=== PATIENT | female | born 1950 | race Caucasian/White ===

== ENCOUNTER 2024-05-01 08:59 | Inpatient (IN) ==
--- NOTE | 2024-05-01 09:05 | DR.GENAD ---
HPI Time Seen Time Seen by Provider: 05/01/24 09:03 Complaint/Symptoms Chief Complaint Doctors Comments: According to the daughter her mom's not been feeling well for the last 3 to 4 days she has been weak in the bed she does have a history of atrial fibrillation. And there was some evidence that she failed about 5 days ago. COVID-19 Coronavirus risk:travel/contact w/high risk person: No Has patient experienced Coronavirus symptoms: No PMH Travel Risk Coronavirus risk:travel/contact w/high risk person: No Has patient experienced Coronavirus symptoms: No ROS Review of Systems Constitutional: Malaise and Weakness Eyes: No Symptoms Reported ENTM: No Symptoms Reported Respiratoy: No Symptoms Reported Cardiovascular: Palpitations and Other (afib) Gastrointestinal/Abdominal: No Symptoms Reported Genitourinary: No Symptoms Reported Neurological: Problems Walking and Other (unstable gait) Musculoskeletal: Muscle Stiffness Integumentary: No Symptoms Reported Hematologic/Lymphatic: No Symptoms Reported Endocrine: No Symptoms Reported Psychiatric: Depression PE Vital Signs Vitals: Vital Signs Temperature 97.7 F Pulse Rate 108 Pulse Rate 115 Pulse Rate 116 Pulse Rate 119 Pulse Rate 123 Pulse Rate 119 Pulse Rate 124 Pulse Rate 121 Pulse Rate 122 Pulse Rate 126 Pulse Rate 120 Pulse Rate 122 Pulse Rate 122 Pulse Rate 120 Pulse Rate 121 Pulse Rate 123 Pulse Rate 126 Pulse Rate 126 Pulse Rate 126 Respiratory Rate 23 Respiratory Rate 20 Respiratory Rate 35 Respiratory Rate 20 Respiratory Rate 39 Respiratory Rate 36 Respiratory Rate 25 Respiratory Rate 36 Respiratory Rate 33 Respiratory Rate 23 Respiratory Rate 22 Respiratory Rate 29 Respiratory Rate 21 Respiratory Rate 21 Respiratory Rate 32 Respiratory Rate 26 Respiratory Rate 27 Respiratory Rate 24 Respiratory Rate 27 Respiratory Rate 28 Blood Pressure 176/69 Blood Pressure 177/69 Blood Pressure 176/136 Blood Pressure 155/72 Blood Pressure 171/79 Blood Pressure 180/77 Blood Pressure 179/73 Blood Pressure 140/68 Blood Pressure 152/77 Blood Pressure 166/135 Blood Pressure 166/135 O2 Sat by Pulse Oximetry 98 O2 Sat by Pulse Oximetry 98 O2 Sat by Pulse Oximetry 98 O2 Sat by Pulse Oximetry 98 O2 Sat by Pulse Oximetry 97 O2 Sat by Pulse Oximetry 98 O2 Sat by Pulse Oximetry 98 O2 Sat by Pulse Oximetry 99 O2 Sat by Pulse Oximetry 99 O2 Sat by Pulse Oximetry 96 O2 Sat by Pulse Oximetry 98 O2 Sat by Pulse Oximetry 93 O2 Sat by Pulse Oximetry 100 O2 Sat by Pulse Oximetry 99 O2 Sat by Pulse Oximetry 99 General General Appearance: Lethargic and In Distress (mild distress) Head Head Exam: Normal Inspection and Atraumatic Eyes Eye exam: Normal Appearance, PERRL and EOMI ENT ENT Exam: Normal Exam, Normal Oropharynx and Normal External Ear Exam External Ear Exam: Normal External Inspection TM/Canal Exam: Bilateral: Normal Nose Exam: Normal Nose Exam Mouth Exam: Normal Inspection Throat Exam: Normal Inspection Neck Neck Exam: Normal Inspection Chest Chest Inspection: Normal Inspection and Symmetric Chest Wall Rise Respiratory Respiratory Exam: Normal Lung Sounds Bilat Respiratory Exam: Bilateral: Clear to Auscultation Cardiovascular Cardiovascular Exam: Irregular Rhythm and Other (afib with rvr) Abdominal Exam Abdominal Exam: Normal Inspection, Normal Bowel Sounds and Soft Extremities Extremities Exam: Other (skin tear r posterior upper arm) Back Back Exam: Normal Inspection Neurologic Neurological Exam: Alert and Oriented X3 Psychiatric Psychiatric Exam: Depressed Skin Skin Exam: Warm, Dry and Intact MDM Differential Diagnosis Differential Diagnosis: afib with rvr,tia,uti,ami,copd,urti COURSE Treatment Treatment: Was initially given Cardizem 5 mg IV for A-fib with RVR and her rate did come down to about 120s to 130s patient was started on a cardiac exam drip a we did continue to do the workup on the patient and she ended up having a urine that was indicative of may be urosepsis she had a too numerous to count white blood cells and there and +2 bacteria she also had an increase lactic acid level of 4.2 she had a sodium was 125 potassium of 2.8 her WBC was 14.8 we did do a troponin that was 40 did a magnesium level that was 1.[address] of her brain that showed no acute intracranial process she did have an abdominal series in which there was no intrathoracic or intra-abdominal abnormality. This patient was given a bolus of saline with 20 of potassium and to be fluid over 2 hours and was given magnesium oxide 400 mg orally in the ER. Contact was made with Dr. Hsu the physician on-call and he agrees that the patient for treatment for urosepsis and for A-fib with RVR patient was placed in the unit. Patient complained of pain and was given morphine sulfate 2 mg IV and also complains of nausea and she was given Zofran 4 mg IV. ROR Labs Reviewed Laboratory Results Reviewed?: Yes 05/01/24 09:10 05/01/24 09:10 Laboratory: WBC 14.8 X10^3/uL (3.6-10.0) H 05/01/24 09:10 RBC 4.47 X10^6/uL (3.5-5.4) 05/01/24 09:10 Hgb 12.9 g/dL (12.0-16.0) 05/01/24 09:10 Hct 38.6 % (36.0-47.0) 05/01/24 09:10 MCV 86.3 fL (80.0-100.0) 05/01/24 09:10 MCH 28.9 pg (27.0-34.0) 05/01/24 09:10 MCHC 33.5 g/dL (33.0-35.0) 05/01/24 09:10 RDW 19.0 % (11.6-16.5) H 05/01/24 09:10 Plt Count 176 X10^3/uL (150.0-450.0) 05/01/24 09:10 Plt Count Comment Adequate (ADEQUATE) 05/01/24 09:10 MPV 9.1 fL (7.4-11.0) 05/01/24 09:10 Neut % (Auto) 79.3 % (42.0-75.0) H 05/01/24 09:10 Lymph % (Auto) 10.6 % (21.0-51.0) L 05/01/24 09:10 [place] % (Auto) 9.6 % (0.0-13.0) 05/01/24 09:10 Eos % (Auto) 0.1 % (0.9-2.9) L 05/01/24 09:10 Baso % (Auto) 0.4 % (0.2-1.0) 05/01/24 09:10 Neut # (Auto) 11.7 x10^3/uL (2.2-4.8) H 05/01/24 09:10 Lymph # (Auto) 1.6 X10^3/uL (1.3-2.9) 05/01/24 09:10 [place] # (Auto) 1.4 x10^3/uL (0.3-0.8) H 05/01/24 09:10 Eos # (Auto) 0.0 x10^3/uL (0.0-0.2) 05/01/24 09:10 Baso # (Auto) 0.1 X10^3/uL (0.0-0.1) 05/01/24 09:10 Absolute Nucleated RBC 0.1 /100WBC 05/01/24 09:10 Total Counted 100 05/01/24 09:10 Neutrophils % (Manual) 78 % (39-76) H 05/01/24 09:10 Band Neutrophils % 2 % (0-10) 05/01/24 09:10 Lymphocytes % (Manual) 15 % (13-43) 05/01/24 09:10 Monocytes % (Manual) 5 % (4-9) 05/01/24 09:10 Giant Platelets Rare 05/01/24 09:10 Plt Morphology Comment Abnormal (NORMAL) A 05/01/24 09:10 RBC Morphology Abnormal (NORMAL) A 05/01/24 09:10 Anisocytosis Slight A 05/01/24 09:10 PT 17.0 SECONDS (11.8-14.3) 05/01/24 09:10 INR Target Range - 05/01/24 09:10 INR 1.43 (0.8-1.3) H 05/01/24 09:10 APTT 30.0 SECONDS (22.9-36.5) 05/01/24 09:10 PTT Comment - 05/01/24 09:10 Sodium 125 mmol/L (136-145) L* 05/01/24 09:10 Corrected Sodium 127 mmol/L (136-145) L 05/01/24 09:10 Potassium 2.8 mmol/L (3.5-5.1) L* 05/01/24 09:10 Chloride 89 mmol/L (98-107) L 05/01/24 09:10 Carbon Dioxide 24.0 mmol/L (21-32) 05/01/24 09:10 BUN 17 mg/dL (7-18) 05/01/24 09:10 Creatinine 1.69 mg/dL (0.55-1.02) H 05/01/24 09:10 Est GFR (MDRD) Af Amer 38 (>60) L 05/01/24 09:10 Est GFR (MDRD) Non-Af 32 (>60) L 05/01/24 09:10 Glucose 192 mg/dL (65-99) H 05/01/24 09:10 Lactic Acid 4.6 mmol/L (0.4-2.0) H* 05/01/24 09:10 Calcium 8.6 mg/dL (8.5-10.1) 05/01/24 09:10 Corrected Calcium 9.7 mg/dL (8.5-10.1) 05/01/24 09:10 Magnesium 1.8 mg/dL (2.0-2.9) L 05/01/24 09:10 Total Bilirubin 1.10 mg/dL (0.2-1.0) H 05/01/24 09:10 AST 38 Units/L (15-37) H 05/01/24 09:10 ALT 29 Units/L (12-78) 05/01/24 09:10 Alkaline Phosphatase 140 Units/L (46-116) H 05/01/24 09:10 Ammonia 18 umol/L (11-32) 05/01/24 09:45 Creatine Kinase 30 Units/L (26-192) 05/01/24 09:10 Troponin I High Sens 40.0 ng/L (4.0-60.0) 05/01/24 09:10 Total Protein 7.5 g/dL (6.4-8.2) 05/01/24 09:10 Albumin 2.6 g/dL (3.4-5.0) L 05/01/24 09:10 Globulin 4.9 g/dL (2.5-4.5) H 05/01/24 09:10 Albumin/Globulin Ratio 0.5 Ratio (1.1-2.1) L 05/01/24 09:10 Amylase 50 Units/L (25-115) 05/01/24 09:10 Lipase 60 Units/L (16-77) 05/01/24 09:10 Specimen Type Catherized urine 05/01/24:22 Urine Color Yellow (YELLOW) 05/01/24 09:22 Urine Appearance Turbid (CLEAR) 05/01/24 09:22 Urine pH 6.0 (5.0 - 8.0) 05/01/24 09:22 Ur Specific [place] 1.020 (1.000-1.030) 05/01/24 09:22 Urine Protein 4+ (NEGATIVE) 05/01/24 09:22 Urine Glucose (UA) Negative (NEGATIVE) 05/01/24 09: Urine Ketones Negative (NEGATIVE) 05/01/24 09: Urine Blood 5+ (NEGATIVE) 05/01/24 09:22 Urine Nitrite Negative (NEGATIVE) 05/01/24 09:22 Urine Bilirubin Negative (NEGATIVE) 05/01/24 09: Urine Urobilinogen Normal (NORMAL) 05/01/24 09:22 Ur Leukocyte Esterase 3+ (NEGATIVE) 05/01/24 09:22 Urine RBC Tntc /HPF (0-3) A 05/01/24 09:22 Urine WBC Tntc /HPF (0-5) A 05/01/24 09:22 Ur Squamous Epith Cells Rare /HPF (NEGATIVE) 05/01/24 09: Amorphous Sediment 1+ /HPF (NEGATIVE) 05/01/24 09: Urine Bacteria 2+ /HPF (NEGATIVE) 05/01/24 09:22 Ur Culture Indicated? Yes/culture set up 05/01/24 09: SARS-CoV-2 (PCR) Negative (NEGATIVE) 05/01/24 09:22 Influenza Type A (PCR) Negative (NEGATIVE) 05/01/24 09: Influenza Type B (PCR) Negative (NEGATIVE) 05/01/24 09: RSV (PCR) Negative (NEGATIVE) 05/01/24 09:22 Opioid Opioid Risk Tool Age (Attila box if 16-45): No History of Preadolescent Sexual Abuse: No Total: 0 Total Score Risk Category: Low Risk Copyright: Tello DORSEY predicting aberrant behaviors Discharge Plan Diagnosis Discharge Problem: Sepsis, Atrial fibrillation with rapid ventricular response, Hypokalemia, Dehydration, Hyponatremia, Hypomagnesemia Discharge Plan Patient Disposition: 09 ADMITTED INPATIENT Condition: Stable Prescriptions: No Action venlafaxine 75 mg capsule,extended release 24hr 225 mg PO QDAY albuterol sulfate 2.5 mg /3 mL (0.083 %) solution for nebulization 2.5 mg inhalation Q6HR clopidogrel 75 mg tablet 75 mg PO QDAY amlodipine 5 mg tablet 5 mg PO QDAY nitroglycerin 0.4 mg tablet, sublingual 0.4 mg sublingual Q5-15M PRN diltiazem HCl 120 mg capsule,extended release 24hr 120 mg PO QDAY folic acid 1 mg tablet 1 mg PO QDAY oxycodone 5 mg tablet 5 mg PO QID ezetimibe 10 mg tablet 10 mg PO QDAY Prolia 60 mg/mL syringe 60 mg SUBCUT Q6M Linzess 290 mcg capsule 290 mcg PO QAM aspirin 81 mg Capsule 81 mg PO QDAY Health Concerns: Post Hospitalization: new medications and changes needed to prevent readmission or further decline. Pt educated and given instructions on all concerns. Plan of Treatment: Continue with present treatment and follow up plan. Pt is to keep follow up a ppointment as instructed and take medications as ordered. Orders to Discharge Patient Discharge Orders: Transfer (Routine); Ordered 05/01/24 Ordered By: Jb Goldstein Follow ups/Referrals Follow ups/Referrals: FRANKY MARTINEZ [Primary Care Provider] - 3 days
--- NOTE | 2024-05-01 09:14 | EKG ---
Test Reason : afib Blood Pressure : */* mmHG Vent. Rate : 129 BPM Atrial Rate : * BPM P-R Int : * ms QRS Dur : 72 ms QT Int : 340 ms P-R-T Axes : * -47 59 degrees QTc Int : 498 ms Atrial fibrillation with rapid ventricular response with premature ventricular or aberrantly conducte d complexes Left axis deviation Anteroseptal infarct , age undetermined Abnormal ECG No previous ECGs available Confirmed by Mandeep Gilbert MD ([id number]) on 05/04/2024 7:38:44 AM Referred By: Confirmed By: Mandeep Gilbert MD
[2024-05-01] MEDS: CARDIZEM INJ 50 MG VIAL IVP ONE (09:17)
[2024-05-01 09:30] LABS: BASOPHILS # (AUTO) 0.1 X10^3/uL (0.0-0.1); BASOPHILS % (AUTO) 0.4 % (0.2-1.0); EOSINOPHILS % (AUTO) 0.1 % (0.9-2.9); HEMOGLOBIN 12.9 g/dL (12.0-16.0); MEAN CORPUSCULAR HGB CONC 33.5 g/dL (33.0-35.0); MONOCYTES # (AUTO) 1.4 x10^3/uL (0.3-0.8); NEUTROPHILS # (AUTO) 11.7 x10^3/uL (2.2-4.8); RED BLOOD COUNT 4.47 X10^6/uL (3.5-5.4)
[2024-05-01 09:34] LABS: HEMATOCRIT 38.6 % (36.0-47.0); LYMPHOCYTES # (AUTO) 1.6 X10^3/uL (1.3-2.9); LYMPHOCYTES % (AUTO) 10.6 % (21.0-51.0); MEAN CORPUSCULAR HEMOGLOBIN 28.9 pg (27.0-34.0); MEAN CORPUSCULAR VOLUME 86.3 fL (80.0-100.0); MEAN PLATELET VOLUME 9.1 fL (7.4-11.0); MONOCYTES % (AUTO) 9.6 % (0.0-13.0); NEUTROPHILS % (AUTO) 79.3 % (42.0-75.0); PLATELET COUNT 176 X10^3/uL (150.0-450.0); WHITE BLOOD COUNT 14.8 X10^3/uL (3.6-10.0)
[2024-05-01 09:39] LABS: INR 1.43 (0.8-1.3)
[2024-05-01] MEDS: ZOFRAN INJ 4 MG VIAL IVP ONE (09:44)
[2024-05-01 09:47] LABS: ALBUMIN 2.6 g/dL (3.4-5.0); BAND NEUTROPHILS % 2 % (0-10); CALCIUM 8.6 mg/dL (8.5-10.1); COR CA(FOR HYPOALB) 9.7 mg/dL (8.5-10.1); CREATININE 1.69 mg/dL (0.55-1.02); MAGNESIUM 1.8 mg/dL (2.0-2.9); TOTAL PROTEIN 7.5 g/dL (6.4-8.2)
[2024-05-01 09:48] LABS: ANISOCYTOSIS SLIGHT
[2024-05-01 09:51] LABS: GIANT PLATELET RARE; PLATELET MORPHOLOGY COMMENT ABNORMAL (NORMAL)
[2024-05-01 09:56] LABS: POTASSIUM 2.8 mmol/L (3.5-5.1)
[2024-05-01 10:04] LABS: BILIRUBIN,URINE NEGATIVE (NEGATIVE); BLOOD/HEMOGLOBIN,URINE 5+ (NEGATIVE); GLUCOSE, URINE NEGATIVE (NEGATIVE); KETONES,URINE NEGATIVE (NEGATIVE); LEUKOCYTE ESTERASE ,URINE 3+ (NEGATIVE); NITRITES,URINE NEGATIVE (NEGATIVE); PROTEIN,URINE 4+ (NEGATIVE); UROBILINOGEN,URINE NORMAL (NORMAL)
[2024-05-01] MEDS: NS + KCL 20 MEQ/L 1,000 ML IV ONE (10:09)
[2024-05-01 10:13] LABS: APPEARANCE,URINE TURBID (CLEAR); BACTERIA,URINE 2+ /HPF (NEGATIVE); COLOR,URINE YELLOW (YELLOW); RBC,URINE TNTC /HPF (0-3); SQUAMOUS EPITHELIAL CELL,UR RARE /HPF (NEGATIVE)
--- NOTE | 2024-05-01 10:20 | CT ---
EXAMINATION:HEAD (TRAUMA)HISTORY:Pt's daughter states that 3 days ago the pt did fall twice and she is unsure if she hit her head. Pt has also had urinary incontinence and burning with urination; .COMPARISON STUDY:None.TECHNIQUE:Images were obtained in brain and bone windows. The above CT scan was done with automated exposure control and the mA and kV was adjusted to obtain quality images according to patient size.FINDINGS:There is no acute intracranial hemorrhage, midline shift or edema present. There is atrophy and deep white matter ischemic change due to small vessel disease. [place]-white matter differentiation is maintained throughout. There are no intra-axial or extra-axial collections noted. There is motion artifact. Old lacunar infarct in the left basal ganglia..The sinuses are clear. The mastoid air cells are clear. There is no radiographic evidence of depressed skull fracture. Vascular calcification about the skull base..IMPRESSION:No acute intracranial process. Atrophy and deep white matter ischemic change due to small vessel disease. .THIS IS AN ELECTRONICALLY VERIFIED FINAL [id number]/01/2024 10:16 AM - Electronically signed by Dante Encarnacion MD
[2024-05-01] MEDS: CARDIZEM INJ 125 MG VIAL 125 MG in NS 100 ML IV 100 ML IV PRN (10:31)
[2024-05-01] MEDS: ROCEPHIN VIAL 1 GRAM IVP ONE (10:55)
--- NOTE | 2024-05-01 11:09 | RAD ---
EXAM: ACUTE ABDOMEN SERI ES HISTORY: Pt's daughter states that 3 days ago the pt did fall twice and she is unsure if she hit her head. Pt has also had urinary incontinence and burning with urination; COMPARISON: None FINDINGS: The cardiomediastinal silhouette is normal in size. Loop recorder overlying the left chest. No acut e airspace disease. No pneumothorax or effusion.No acute osseous abnormality in the thorax. Evaluation of the abdomen demonstrates a nonobstructive bowel gas pattern. no evidence of pneumoperit oneum. No pathologic soft tissue calcification. No acute osseous abnormality in the abdomen. ORIF chan rdware overlying the left femur. IMPRESSION: 1. No acute cardiopulmonary process. 2. No acute abdominal process. THIS IS AN ELECTRONICALLY VERIFIED FINAL REPORT 05/01/2024 11:06 AM - Electronically signed by Ross Carpenter MD
[2024-05-01] MEDS: MAG-OX TAB PO ONE (11:26)
[2024-05-01] MEDS: MORPHINE SULFATE INJ 2 MG INJ IVP ONE (11:29)
[2024-05-01] MEDS ORDERED: ZOFRAN INJ 4 MG VIAL IVP PRN (11:45)
[2024-05-01] MEDS ORDERED: MORPHINE SULFATE INJ 10 MG IVP PRN (11:45)
[2024-05-01] MEDS ORDERED: NITROSTAT SL PRN (12:48)
[2024-05-01] MEDS: ZOFRAN INJ 4 MG VIAL ONE (12:49)
[2024-05-01] MEDS: CARDIZEM INJ 50 MG VIAL ONE (12:49)
[2024-05-01] MEDS: NS 100 ML IV 100 ML ONE (12:49)
[2024-05-01] MEDS: MORPHINE SULFATE INJ 2 MG INJ ONE (12:49)
[2024-05-01] MEDS: MAG-OX TAB ONE (12:50)
[2024-05-01] MEDS: CARDIZEM INJ 125 MG VIAL ONE (12:50)
[2024-05-01] MEDS: ROCEPHIN VIAL 1 GRAM ONE (12:50)
[2024-05-01] MEDS: PROLIA SC SCH (12:53)
[2024-05-01] MEDS ORDERED: PROVENTIL NEB TX 0.083% 2.5MG/ 3ML IN SCH (15:00)
[2024-05-01] MEDS: NS + KCL 20 MEQ/L 1,000 ML IV SCH (17:10)
[2024-05-01] MEDS: PROVENTIL NEB TX 0.083% 2.5MG/ 3ML NEB SCH (17:49)
[2024-05-01] MEDS ORDERED: ACCUNEB 1.25 MG NEBULE NEB SCH (18:00)
[2024-05-01] MEDS: MORPHINE SULFATE INJ 2 MG INJ IVP PRN (18:34)
[2024-05-01] MEDS: LASIX PO SCH (21:38)
[2024-05-01] MEDS: ROCEPHIN VIAL 1 GRAM 1 G in NS 100 ML IV 100 ML IV SCH (21:40)
[2024-05-01] MEDS: NEXTERONE IV 150 MG PREMIX* 150 MG/100 ML BAG IV ONE (22:16)
[2024-05-01] MEDS: NEXTERONE IV 360 MG PREMIX* 360 MG/200 ML BAG IV PRN (22:41)
[2024-05-01] MEDS: NEXTERONE IV 360 MG PREMIX* 360 MG/200 ML BAG IV ONE (22:41)
[2024-05-02] MEDS: NS + KCL 20 MEQ/L 1,000 ML IV SCH (01:21)
[2024-05-02] MEDS: NEXTERONE IV 360 MG PREMIX* 360 MG/200 ML BAG IV ONE (04:28)
[2024-05-02 05:00] LABS: ALBUMIN 2.2 g/dL (3.4-5.0); CARBON DIOXIDE 24.9 mmol/L (21-32); COR CA(FOR HYPOALB) 8.4 mg/dL (8.5-10.1); CREATININE 1.27 mg/dL (0.55-1.02); MAGNESIUM 1.3 mg/dL (2.0-2.9); TOTAL PROTEIN 6.6 g/dL (6.4-8.2)
[2024-05-02 05:03] LABS: BASOPHILS # (AUTO) 0.1 X10^3/uL (0.0-0.1); BASOPHILS % (AUTO) 0.5 % (0.2-1.0); EOSINOPHILS % (AUTO) 0.1 % (0.9-2.9); HEMATOCRIT 32.3 % (36.0-47.0); HEMOGLOBIN 11.1 g/dL (12.0-16.0); LYMPHOCYTES # (AUTO) 1.3 X10^3/uL (1.3-2.9); LYMPHOCYTES % (AUTO) 10.8 % (21.0-51.0); MEAN CORPUSCULAR HEMOGLOBIN 29.2 pg (27.0-34.0); MEAN CORPUSCULAR HGB CONC 34.3 g/dL (33.0-35.0); MONOCYTES % (AUTO) 8.5 % (0.0-13.0); NEUTROPHILS # (AUTO) 9.5 x10^3/uL (2.2-4.8); NEUTROPHILS % (AUTO) 80.1 % (42.0-75.0); PLATELET COUNT 153 X10^3/uL (150.0-450.0); RED CELL DISTRIBUTION WIDTH 19.5 % (11.6-16.5); WHITE BLOOD COUNT 11.9 X10^3/uL (3.6-10.0)
[2024-05-02 05:24] LABS: POTASSIUM 2.5 mmol/L (3.5-5.1)
[2024-05-02 06:59] LABS: ANISOCYTOSIS SLIGHT; BURR CELLS PRESENT; PLATELET MORPHOLOGY COMMENT NORMAL (NORMAL)
[2024-05-02] MEDS ORDERED: CARDIZEM CD 120 MG 24-HR PO SCH (09:00)
[2024-05-02] MEDS: NORVASC TAB 5 MG PO SCH (09:10)
[2024-05-02] MEDS: FOLIC ACID TAB 1 MG PO SCH (09:10)
[2024-05-02] MEDS: MAG-OX TAB PO SCH ×2 (09:10→17:51)
[2024-05-02] MEDS: EFFEXOR XR 75 MG CAP 24-HR PO SCH (09:10)
[2024-05-02] MEDS: PLAVIX PO SCH (09:10)
[2024-05-02] MEDS: ASPIRIN EC 81 MG PO SCH (09:11)
[2024-05-02] MEDS: ZETIA TAB 10 MG PO SCH (09:11)
[2024-05-02] MEDS: LINZESS PO SCH (09:11)
[2024-05-02] MEDS ORDERED: APRESOLINE INJ 20 MG VIAL ONE (12:11)
[2024-05-02] MEDS: APRESOLINE INJ 20 MG VIAL IVP PRN (12:15)
[2024-05-02] MEDS: LOPRESSOR INJ 5 MG AMP IVP PRN (16:10)
[2024-05-02] MEDS: K-DUR TAB 20 MEQ PO SCH (17:51)
[2024-05-02] MEDS: CONSULT PHARMACY - POTASSIUM & MAGNESIUM XX SCH (18:46)
[2024-05-02] MEDS: VISTARIL PO PRN (20:11)
--- NOTE | 2024-05-02 20:11 | DR.H&P ---
H&P History & Physical for Day of: H&P Date: 05/02/24 Chief Complaint Chief Complaint: weakness History of Present Illness History of Present Illness: Patient brought to ER from home due to low worsening weakness with some alteration of mentation. Found to be septic from a UTI along with having RVR from A-fib. Feeling much better this morning. Seems to be back at baseline. HR much better but having elevated BP. Culture still pending on UA. Currently on Cardizem and amiodarone drips. ROS: 12 point ROS negative septa as noted in HPI. Vitals, labs, and imaging reviewed. PE: Well-developed, well-nourished elderly female in no acute distress. Head NCAT. Hearing intact conversation. EOMI. Heart irregularly irregular. Lungs clear. Belly soft and nontender with bowel sounds present. Mood and affect ap propriate. Past Medical History Past Medical History: Anemia, CHF, COPD, Coronary Artery Disease, CVA, Diabetes, Dyslipidemia, Hypertension, [place] and SVT Past Surgical History Surgical History: Angioplasty/Stents, Appendectomy, CABG/Valve Surgery, Cholecystectomy, MENTAL TESTER Surgery, Hysterectomy, Ortho Surgery and Other Family History Family Medical History: Diabetes Mellitus, Cancer, [place], Coronary Artery Disease, Heart Failure, Sudden Cardiac and Hypertension Social History Does patient currently use any type of tobacco product: No Have you used tobacco products in the last 12 months: No Type of Tobacco Use: Cigarettes How many years tobacco product used: 60 Does any household member use tobacco: No Alcohol Use: None Drug Use: None Medications Home Medications: Home Medications Medication Instructions Recorded Confirmed Type albuterol sulfate 2.5 mg/3 mL 2.5 mg inhalation Q6HR 05/01/24 05/01/24 History (0.083 %) solution for nebulization amlodipine 5 mg tablet 5 mg PO QDAY 05/01/24 05/01/24 History aspirin 81 mg capsule 81 mg PO QDAY 05/01/24 05/01/24 History clopidogrel 75 mg tablet 75 mg PO QDAY 05/01/24 05/01/24 History denosumab 60 mg/mL subcutaneous 60 mg subcut [id number] osteoporosis 05/01/24 05/01/24 History syringe (Prolia) diltiazem HCl 120 mg 120 mg PO QDAY 05/01/24 05/01/24 History capsule,extended release 24 hr ezetimibe 10 mg tablet 10 mg PO QDAY 05/01/24 05/01/24 History folic acid 1 mg tablet 1 mg PO QDAY 05/01/24 05/01/24 History linaclotide 290 mcg capsule 290 mcg PO QAM 05/01/24 05/01/24 History (Linzess) nitroglycerin 0.4 mg sublingual 0.4 mg sublingual Q5-15M PRN 05/01/24 05/01/24 History tablet oxycodone 5 mg tablet 5 mg PO QID pain 05/01/24 05/01/24 History venlafaxine 75 mg capsule,extended 225 mg PO QDAY 05/01/24 05/01/24 History release 24 hr Allergies Allergies Allergy/AdvReac Type Severity Reaction Status Date / Time No Known Allergies Allergy Verified 05/01/24 09:17 Labs 05/02/24 04:03 05/02/24 04:03 Labs: 05/01/24 09:22 Urine,Catheterized Urine Culture - Preliminary 05/01/24 09:10 Blood Blood Culture - Preliminary Laboratory WBC 11.9 X10^3/uL (3.6-10.0) H 05/02/24 04:03 RBC 3.80 X10^6/uL (3.5-5.4) 05/02/24 04:03 Hgb 11.1 g/dL (12.0-16.0) L 05/02/24 04:03 Hct 32.3 % (36.0-47.0) L 05/02/24 04:03 MCV 85.0 fL (80.0-100.0) 05/02/24 04:03 MCH 29.2 pg (27.0-34.0) 05/02/24 04:03 MCHC 34.3 g/dL (33.0-35.0) 05/02/24 04:03 RDW 19.5 % (11.6-16.5) H 05/02/24 04:03 Plt Count 153 X10^3/uL (150.0-450.0) 05/02/24 04:03 Plt Count Comment Adequate (ADEQUATE) 05/02/24 04:03 MPV 9.0 fL (7.4-11.0) 05/02/24 04:03 Neut % (Auto) 80.1 % (42.0-75.0) H 05/02/24 04:03 Lymph % (Auto) 10.8 % (21.0-51.0) L 05/02/24 04:03 [place] % (Auto) 8.5 % (0.0-13.0) 05/02/24 04:03 Eos % (Auto) 0.1 % (0.9-2.9) L 05/02/24 04:03 Baso % (Auto) 0.5 % (0.2-1.0) 05/02/24 04:03 Neut # (Auto) 9.5 x10^3/uL (2.2-4.8) H 05/02/24 04:03 Lymph # (Auto) 1.3 X10^3/uL (1.3-2.9) 05/02/24 04:03 [place] # (Auto) 1.0 x10^3/uL (0.3-0.8) H 05/02/24 04:03 Eos # (Auto) 0.0 x10^3/uL (0.0-0.2) 05/02/24 04:03 Baso # (Auto) 0.1 X10^3/uL (0.0-0.1) 05/02/24 04:03 Absolute Nucleated RBC 0.1 /100WBC 05/02/24 04:03 Total Counted 100 05/02/24 04:03 Neutrophils % (Manual) 84 % (39-76) H 05/02/24 04:03 Band Neutrophils % 2 % (0-10) 05/01/24 09:10 Lymphocytes % (Manual) 10 % (13-43) L 05/02/24 04:03 Monocytes % (Manual) 6 % (4-9) 05/02/24 04:03 Giant Platelets Rare 05/01/24 09:10 Plt Morphology Comment Normal (NORMAL) 05/02/24 04:03 RBC Morphology Abnormal (NORMAL) A 05/02/24 04:03 Anisocytosis Slight A 05/02/24 04:03 Og Cells Present 05/02/24 04:03 PT 17.0 SECONDS (11.8-14.3) 05/01/24 09:10 INR Target Range - 05/01/24 09:10 INR 1.43 (0.8-1.3) H 05/01/24 09:10 APTT 30.0 SECONDS (22.9-36.5) 05/01/24 09:10 PTT Comment - 05/01/24 09:10 Sodium 128 mmol/L (136-145) L 05/02/24 04:03 Corrected Sodium 129 mmol/L (136-145) L 05/02/24 04:03 Potassium 2.5 mmol/L (3.5-5.1) L* 05/02/24 04:03 Chloride 93 mmol/L (98-107) L 05/02/24 04:03 Carbon Dioxide 24.9 mmol/L (21-32) 05/02/24 04:03 BUN 15 mg/dL (7-18) 05/02/24 04:03 Creatinine 1.27 mg/dL (0.55-1.02) H 05/02/24 04:03 Est GFR (MDRD) Af Amer 53 (>60) L 05/02/24 04:03 Est GFR (MDRD) Non-Af 44 (>60) L 05/02/24 04:03 Glucose 127 mg/dL (65-99) H 05/02/24 04:03 Lactic Acid 1.7 mmol/L (0.4-2.0) 05/01/24 11:24 Calcium 7.0 mg/dL (8.5-10.1) L 05/02/24 04:03 Corrected Calcium 8.4 mg/dL (8.5-10.1) L 05/02/24 04:03 Magnesium 1.3 mg/dL (2.0-2.9) L 05/02/24 04:03 Total Bilirubin 0.50 mg/dL (0.2-1.0) 05/02/24 04:03 AST 22 Units/L (15-37) 05/02/24 04:03 ALT 19 Units/L (12-78) 05/02/24 04:03 Alkaline Phosphatase 122 Units/L (46-116) H 05/02/24 04:03 Ammonia 18 umol/L (11-32) 05/01/24 09:45 Creatine Kinase 30 Units/L (26-192) 05/01/24 09:10 Troponin I High Sens 40.0 ng/L (4.0-60.0) 05/01/24 09:10 Total Protein 6.6 g/dL (6.4-8.2) 05/02/24 04:03 Albumin 2.2 g/dL (3.4-5.0) L 05/02/24 04:03 Globulin 4.4 g/dL (2.5-4.5) 05/02/24 04:03 Albumin/Globulin Ratio 0.5 Ratio (1.1-2.1) L 05/02/24 04:03 Triglycerides 107 mg/dL (0-150) 05/02/24 04:03 Cholesterol 72 mg/dL (0-200) 05/02/24 04:03 LDL Cholesterol, Calc 39 mg/dL (0-100) 05/02/24 04:03 HDL Cholesterol 12 mg/dL (40-60) L 05/02/24 04:03 Cholesterol/HDL Ratio 6.0 (0.0-5.0) H 05/02/24 04:03 Amylase 50 Units/L (25-115) 05/01/24 09:10 Lipase 60 Units/L (16-77) 05/01/24 09:10 Specimen Type Catherized urine 05/01/24 09:22 Urine Color Yellow (YELLOW) 05/01/24 09: Urine Appearance Turbid (CLEAR) 05/01/24 09:22 Urine pH 6.0 (5.0 - 8.0) 05/01/24 09:22 Ur Specific [place] 1.020 (1.000-1.030) 05/01/24 09:22 Urine Protein 4+ (NEGATIVE) 05/01/24 09: Urine Glucose (UA) Negative (NEGATIVE) 05/01/24 09: Urine Ketones Negative (NEGATIVE) 05/01/24 09: Urine Blood 5+ (NEGATIVE) 05/01/24 09: Urine Nitrite Negative (NEGATIVE) 05/01/24 09: Urine Bilirubin Negative (NEGATIVE) 05/01/24 09: Urine Urobilinogen Normal (NORMAL) 05/01/24 09:22 Ur Leukocyte Esterase 3+ (NEGATIVE) 05/01/24 09:22 Urine RBC Tntc /HPF (0-3) A 05/01/24 09:22 Urine WBC Tntc /HPF (0-5) A 05/01/24 09:22 Ur Squamous Epith Cells Rare /HPF (NEGATIVE) 05/01/24 09:22 Amorphous Sediment 1+ /HPF (NEGATIVE) 05/01/24 09:22 Urine Bacteria 2+ /HPF (NEGATIVE) 05/01/24 09:22 Ur Culture Indicated? Yes/culture set up 05/01/24 09:22 SARS-CoV-2 (PCR) Negative (NEGATIVE) 05/01/24 09:22 Influenza Type A (PCR) Negative (NEGATIVE) 05/01/24 09:22 Influenza Type B (PCR) Negative (NEGATIVE) 05/01/24 09:22 RSV (PCR) Negative (NEGATIVE) 05/01/24 09:22 Physical Exam Vital Signs: Vital Signs Pulse Rate 96 Pulse Rate 93 Respiratory Rate 23 Respiratory Rate 26 Respiratory Rate 25 Blood Pressure 177/74 Blood Pressure 167/72 O2 Sat by Pulse Oximetry 99 O2 Sat by Pulse Oximetry 99 Assessment/Plan (1) Severe sepsis: Narrative Support Text: Blood pressure on the high side not low, will stop aggressive IV fluids and switch to p.o. on. Partially doing this because of the nationwide backorder. Continue IV Rocephin for now while pending cultures. Patient is improving. Did have SIRS, UTI, and RVR with MICHELLE. Status: Acute (2) Urinary tract infection: Qualifiers: Urinary tract infection type: acute cystitis Hematuria presence: with hematuria Qualified Code(s): N30.01 - Acute cystitis with hematuria Narrative Support Text: Pending culture. Continue Rocephin. Status: Acute (3) Atrial fibrillation with rapid ventricular response: Narrative Support Text: Wean off amiodarone now and Cardizem later today. Resume home meds. Monitor closely. Should resolve with improving sepsis. Status: Acute (4) Acute kidney injury: Narrative Support Text: Continue p.o. hydration at this time. IV fluids to KVO. Status: Acute (5) Hypomagnesemia: Narrative Support Text: Replete per protocol Status: Acute (6) Hyponatremia: Narrative Support Text: Per protocol Status: Acute (7) Hypokalemia: Narrative Support Text: Per protocol Status: Acute
[2024-05-03 06:08] LABS: BASOPHILS % (AUTO) 0.3 % (0.2-1.0); EOSINOPHILS % (AUTO) 0.2 % (0.9-2.9); HEMATOCRIT 32.8 % (36.0-47.0); HEMOGLOBIN 11.1 g/dL (12.0-16.0); LYMPHOCYTES # (AUTO) 1.2 X10^3/uL (1.3-2.9); LYMPHOCYTES % (AUTO) 10.2 % (21.0-51.0); MEAN CORPUSCULAR HEMOGLOBIN 28.8 pg (27.0-34.0); MEAN CORPUSCULAR HGB CONC 33.9 g/dL (33.0-35.0); MEAN CORPUSCULAR VOLUME 85.1 fL (80.0-100.0); MEAN PLATELET VOLUME 9.1 fL (7.4-11.0); MONOCYTES # (AUTO) 0.8 x10^3/uL (0.3-0.8); MONOCYTES % (AUTO) 7.3 % (0.0-13.0); NEUTROPHILS # (AUTO) 9.3 x10^3/uL (2.2-4.8); PLATELET COUNT 186 X10^3/uL (150.0-450.0); RED BLOOD COUNT 3.85 X10^6/uL (3.5-5.4); RED CELL DISTRIBUTION WIDTH 19.4 % (11.6-16.5); WHITE BLOOD COUNT 11.4 X10^3/uL (3.6-10.0)
[2024-05-03] MEDS: NS + KCL 20 MEQ/L 1,000 ML IV SCH (06:08)
[2024-05-03 06:21] LABS: CALCIUM 7.1 mg/dL (8.5-10.1); CARBON DIOXIDE 25.8 mmol/L (21-32); COR CA(FOR HYPOALB) 8.7 mg/dL (8.5-10.1); CREATININE 1.17 mg/dL (0.55-1.02); MAGNESIUM 1.7 mg/dL (2.0-2.9); POTASSIUM 3.1 mmol/L (3.5-5.1); TOTAL PROTEIN 6.6 g/dL (6.4-8.2)
[2024-05-03] MEDS: CARDIZEM CD 120 MG 24-HR PO SCH (13:19)
--- NOTE | 2024-05-03 14:19 | NOTE.SOAP ---
Soap Note Note for Day of Date of Exam: 05/03/24 Subjective Data Subjective Data: Patient seen with daughter and nurse at bedside. Doing much better. E. coli with trinh sensitivity grew from culture. She is now off amiodarone and Cardizem drips. BP still elevated. Objective Data Objective Data: Elderly female in no acute distress. Hearing intact conversation. Head NCAT. EOMI. Heart irregularly, irregular. Lungs are clear bilaterally. Belly is soft, nontender, nondistended with bowel sounds present. Mood and affect appropriate. Assessment Assessment: 1. Severe sepsis due to E. coli UTI 2. MICHELLE secondary to sepsis from E. coli UTI. 3. A-fib with RVR secondary to severe sepsis. Plan Plan: Continue IV Rocephin for now. Sepsis is resolving. MICHELLE is also resolving. Continue p.o. and IV fluids. Resume p.o. Cardizem for rate control. Continue DOAC
[2024-05-03] MEDS: ATIVAN TAB 0.5 MG PO PRN (15:19)
[2024-05-03 15:48] VITALS: BMI 25.4
[2024-05-03 18:32] LABS: ABG ALLEN TEST POS; ABG BASE EXCESS -1.1 mmol/L (-2.0-2.0); ABG HCO3 22.4 mmol/L (22-26)
--- NOTE | 2024-05-03 20:35 | CT ---
PROCEDURE: CTA Chest.HISTORY: TACHYPNEA, SHORTNESS OF BREATH, CRITICAL ABG VALUE; .TECHNIQUE: Axial images were performed through the chest with the administration of IV contrast with multiplanar reformations . 3D and MIPS reconstructions were performed and reviewed. Dose reduction techniques including Automated Exposure Control (AEC) and adjustment of mA and kV were utilized .COMPARISON: None.TECHNICAL QUALITY: Satisfactory.FINDINGS:Moderate atherosclerosis aorta with no aneurysm or dissection.No evidence of pulmonary embolus.Mediastinum and hilar regions show no masses or lymphadenopathy.Normal-sized heart with no pericardial fluid.Small bilateral pleural effusions with compressive atelectasis lung bases. 1 cm calcified granuloma right upper lobe. No pulmonary consolidation. Some linear scar versus discoid atelectasis lung bases.Visualized upper abdomen shows no abnormality.No acute bony abnormality. Old T3 compression fracture.IMPRESSION:1. No pulmonary embolus or aortic dissection.2. Small bilateral pleural effusions.3. No pulmonary consolidation.THIS IS AN ELECTRONICALLY VERIFIED FINAL [id number]/2024 8:32 PM - Electronically signed by Irwin Lee MD
[2024-05-03] MEDS: ELIQUIS PO SCH (20:51)
[2024-05-03] MEDS: COLACE CAP 100 MG PO SCH (20:52)
[2024-05-03] MEDS: COREG TAB 12.5 MG PO SCH (20:53)
[2024-05-03] MEDS: MILK OF MAGNESIA PO SCH (20:53)
[2024-05-03] MEDS: PHENOBARBITAL TAB 30 MG (32.4MG) PO PRN (23:13)
[2024-05-04 06:13] LABS: BASOPHILS # (AUTO) 0.1 X10^3/uL (0.0-0.1); BASOPHILS % (AUTO) 0.6 % (0.2-1.0); EOSINOPHILS % (AUTO) 0.4 % (0.9-2.9); HEMATOCRIT 29.9 % (36.0-47.0); HEMOGLOBIN 10.2 g/dL (12.0-16.0); LYMPHOCYTES % (AUTO) 20.2 % (21.0-51.0); MEAN CORPUSCULAR HEMOGLOBIN 29.2 pg (27.0-34.0); MEAN CORPUSCULAR HGB CONC 33.9 g/dL (33.0-35.0); MONOCYTES # (AUTO) 0.9 x10^3/uL (0.3-0.8); MONOCYTES % (AUTO) 9.3 % (0.0-13.0); NEUTROPHILS # (AUTO) 6.7 x10^3/uL (2.2-4.8); NEUTROPHILS % (AUTO) 69.5 % (42.0-75.0); PLATELET COUNT 195 X10^3/uL (150.0-450.0); RED BLOOD COUNT 3.48 X10^6/uL (3.5-5.4); WHITE BLOOD COUNT 9.7 X10^3/uL (3.6-10.0)
[2024-05-04 06:20] LABS: ALANINE AMINOTRANSFERASE 18 Units/L (12-78); ALKALINE PHOSPHATASE 146 Units/L (46-116); ASPARTATE AMINO TRANSFERASE 26 Units/L (15-37); BLOOD UREA NITROGEN 12 mg/dL (7-18); CALCIUM 7.2 mg/dL (8.5-10.1); CARBON DIOXIDE 25.6 mmol/L (21-32); CHLORIDE 98 mmol/L (98-107); COR CA(FOR HYPOALB) 8.8 mg/dL (8.5-10.1); COR NA(FOR HYPERGLY) 131 mmol/L (136-145); CREATININE 1.09 mg/dL (0.55-1.02); GLUCOSE 116 mg/dL (65-99); MAGNESIUM 2.4 mg/dL (2.0-2.9); POTASSIUM 3.6 mmol/L (3.5-5.1); SODIUM 131 mmol/L (136-145); TOTAL PROTEIN 6.4 g/dL (6.4-8.2); eGFR NON BLACK RACES 52 (>60)
[2024-05-04] MEDS: OMNIPAQUE 350 mg/mL 100 mL BTL 100 ML ONE ×3 (06:45→15:10)
[2024-05-04] MEDS: CONSULT PHARMACY - POTASSIUM & MAGNESIUM XX SCH (06:46)
[2024-05-04] MEDS ORDERED: K-DUR TAB 20 MEQ PO SCH (09:00)
--- NOTE | 2024-05-04 10:51 | NOTE.SOAP ---
Soap Note Note for Day of Date of Exam: 05/04/24 Subjective Data Subjective Data: No overnight events per nursing. Did have an Ativan around midnight having difficulty waking up. Still with some pursed lip breathing along with episodes of tachypnea. Does not use a CPAP at home. Does wear O2 continuously and has kept it on since arrival. Vitals otherwise stable. Labs effectively unchanged. CTA negative for PE. She is back on Eliquis. Denies complaints today other than feeling drowsy. Objective Data Objective Data: Elderly female in no acute distress. Hearing intact conversation. Difficult to arouse but is able to answer questions. Heart irregularly irregular with no tachycardia. Lungs are clear with good air movement. Bowel sounds are present. Assessment Assessment: 1. Severe sepsis due to E. coli bacteremia and UTI. Steadily improving. 2. A-fib with RVR-resolved. 3. Lethargy-acute. Likely secondary to Ativan last. 4. Chronic hypoxic respiratory failure due to COPD/simple chronic bronchitis- stable. Plan Plan: Patient will need to discharge with a midline/PICC in place. Will need to complete 14 days of IV antibiotics, Rocephin 1 g daily will work. Overall patient does look much better. MICHELLE is nearly fully resolved. Will plan on d ischarge tomorrow if her breathing seems more stable. I suspect it is mostly related to anxiety, will try to get her out of bed more often today.
[2024-05-04 13:58] LABS: ABG ALLEN TEST POS; ABG BASE EXCESS 1.4 mmol/L (-2.0-2.0); ABG HCO3 24.7 mmol/L (22-26)
--- NOTE | 2024-05-04 15:55 | CT ---
EXAM: HEAD CT WITHOUT INTRAVENOUS CONTRASTHISTORY: Altered mental status. Sepsis.TECHNIQUE: Spiral axial CT images are obtained through the brain without the administration of intravenous contrast. Additional sagittal and coronal reformatted images are reconstructed.DOSIMETRY: Total DLP 1989.95 mGycm; CTDI 279.6 mGyCOMPARISON: Head CT dated May 01, 2024.FINDINGS:There is a stable chronic left basal ganglia/arteaga radiata lacunar infarction. Axial image 20. There are parenchymal lucencies within the white matter tracks of the centrum semiovale, consistent with chronic sequela of atherosclerotic microvascular ischemic disease. Severe atherosclerosis of the intracranial ICAs and vertebral arteries is seen. Consider follow-up MRA as clinically warranted.There is diffuse cerebral cortical atrophy. Nonspecific pineal gland calcification is seen. The centrum semiovale, basal ganglia, cerebellum, and brainstem are otherwise grossly unremarkable for a noncontrast CT scan. There is no acute intracranial hemorrhage, gross acute infarction, mass lesion, midline shift, or hydrocephalus seen. No extra-axial mass or abnormal fluid collection noted.The calvarium is intact. There is mild chronic right maxillary sinusitis marked by mucoperiosteal thickening. The partially imaged paranasal sinuses, middle ear cavities and mastoid air cells are otherwise clear.IMPRESSION:1. Stable chronic left basal ganglia/arteaga radiata lacunar infarction. Axial image 20.2. Chronic microvascular ischemic disease, but no discernible acute infarction seen. Consider followup MRI with diffusion-weighted imaging to rule out occult acute infarction if clinically warranted.3. Severe atherosclerosis of the intracranial ICAs and vertebral arteries is seen. Consider follow-up MRA as clinically warranted.4. No skull fracture, intracranial hemorrhage, mass lesion, midline shift, or hydrocephalus seen.EXAM: CTA HEADHISTORY: Altered mental status. Sepsis.TECHNIQUE: Spiral axial CT images are obtained through the brain with the administration of intravenous contrast. Sagittal and coronal reformatted images were reconstructed. 2-D and 3-D MIP vascular images were reformatted. Evaluation for carotid stenosis performed by implying NASCET criteria.DOSIMETRY: Total DLP 1989.95 mGycm; CTDI 279.6 mGyCOMPARISON: None available.FINDINGS:There is severe atherosclerotic calcified mural plaque seen throughout the carotid siphons with estimated mild (less than 50%), presumed nonhemodynamically significant, segmental luminal stenoses throughout. Axial image 47-66, series 6.There is severe atherosclerotic disease of the distal vertebral arteries (at the skull base level), marked by calcified mural plaques. The left vertebral artery is dominant. There is estimated severe (greater than 70%), potentially hemodynamically significant, distal right vertebral artery stenosis. Axial image 4-17, series 6. There is estimated mild (up to approximately 50%) distal left vertebral artery stenosis, of uncertain hemodynamic significance. Axial image 15-22; sagittal image 140-150.The basilar artery is widely patent. The [place] is intact. There is no cerebral aneurysm or dissection seen.No hemodynamically significant arterial stenosis or occlusion involving the anterior cerebral arteries, middle cerebral arteries, and posterior cerebral arteries seen.The visualized internal cerebral veins, emissary veins, and dural venous sinuses are patent.Incidental note is made of chronic right maxillary sinusitis marked by mucoperiosteal thickening and buttressing/thickening of the associated right posterior lateral sinus bone. There is suggestion of acute or chronic mild sphenoid sinusitis marked by posterior mucoperiosteal thickening and/or trace fluid.IMPRESSION:1. Severe atherosclerotic calcified mural plaque seen throughout the carotid siphons with estimated mild (less than 50%), presumed nonhemodynamically significant, segmental luminal stenoses throughout. Axial image 47-66, series 6.2. Severe atherosclerotic disease of the distal vertebral arteries (at the skull base level), marked by calcified mural plaques.3. Estimated severe (greater than 70%), potentially hemodynamically significant, distal right vertebral artery stenosis. Axial image 4-17, series 6.4. Estimated mild (up to approximately 50%) distal left vertebral artery stenosis, of uncertain hemodynamic significance. Axial image 15-22; sagittal image 140-150.5. No definite hemodynamically significant (or greater than 50%) arterial stenosis or occlusion seen.6. No gross cerebral aneurysm or dissection seen.7. The dural venous sinuses and emissary veins are patent.THIS IS AN ELECTRONICALLY VERIFIED FINAL [id number]/04/2024 3:52 PM - Electronically signed by Ama Bundy MD
[2024-05-05 05:15] LABS: BASOPHILS # (AUTO) 0.1 X10^3/uL (0.0-0.1); BASOPHILS % (AUTO) 0.8 % (0.2-1.0); EOSINOPHILS % (AUTO) 0.6 % (0.9-2.9); HEMATOCRIT 25.3 % (36.0-47.0); HEMOGLOBIN 8.7 g/dL (12.0-16.0); LYMPHOCYTES # (AUTO) 2.1 X10^3/uL (1.3-2.9); LYMPHOCYTES % (AUTO) 25.8 % (21.0-51.0); MEAN CORPUSCULAR HEMOGLOBIN 29.4 pg (27.0-34.0); MEAN CORPUSCULAR HGB CONC 34.2 g/dL (33.0-35.0); MONOCYTES # (AUTO) 0.8 x10^3/uL (0.3-0.8); MONOCYTES % (AUTO) 9.5 % (0.0-13.0); NEUTROPHILS # (AUTO) 5.1 x10^3/uL (2.2-4.8); NEUTROPHILS % (AUTO) 63.3 % (42.0-75.0); PLATELET COUNT 211 X10^3/uL (150.0-450.0); RED BLOOD COUNT 2.94 X10^6/uL (3.5-5.4); RED CELL DISTRIBUTION WIDTH 20.3 % (11.6-16.5); WHITE BLOOD COUNT 8.1 X10^3/uL (3.6-10.0)
[2024-05-05 05:19] LABS: ALANINE AMINOTRANSFERASE 16 Units/L (12-78); ALKALINE PHOSPHATASE 144 Units/L (46-116); ASPARTATE AMINO TRANSFERASE 21 Units/L (15-37); BLOOD UREA NITROGEN 17 mg/dL (7-18); CALCIUM 7.3 mg/dL (8.5-10.1); CARBON DIOXIDE 24.8 mmol/L (21-32); CHLORIDE 95 mmol/L (98-107); COR CA(FOR HYPOALB) 8.9 mg/dL (8.5-10.1); GLUCOSE 92 mg/dL (65-99); POTASSIUM 4.3 mmol/L (3.5-5.1); SODIUM 128 mmol/L (136-145); TOTAL PROTEIN 6.1 g/dL (6.4-8.2); eGFR NON BLACK RACES 39 (>60)
[2024-05-05 05:40] LABS: ANISOCYTOSIS 1+; OVALOCYTES SLIGHT; PLATELET MORPHOLOGY COMMENT NORMAL (NORMAL)
--- NOTE | 2024-05-05 07:57 | RAD ---
EXAM:CHEST, 1 VIEWHISTORY:PICC-LINE PLACEMENT;COMPARISON:Prior study or studies were utilized for comparison during interpretation with the most relevant dated 05/03/2024TECHNIQUE:CHEST, 1 VIEWFINDINGS:Chest:Lines and tubes: There is a loop recorder. Cardiac leads overlie the chest. Right-sided upper extremity PICC terminates in the SVC.Mediastinum: Cardiomegaly.Pulmonary vessels: There is pulmonary vascular congestion.Lung chin: Patchy opacities are seenPleura: No effusion. No pneumothorax.Bones and soft tissues: No acute osseous or soft tissue abnormality.IMPRESSION:1. PICC line is in satisfactory position in the mid-lower SVCTHIS IS AN ELECTRONICALLY VERIFIED FINAL [id number]/05/2024 7:54 AM - Electronically signed by Usman Braun MD
--- NOTE | 2024-05-05 08:01 | DR.UPDATE ---
H&P Update Prescription drug monitoring program results: PDMP was not reviewed H&P Reviewed: Yes Any changes to H&P?: No Patient was examined?: Yes Vital Signs: Temp Pulse Resp BP Pulse Ox O2 Del Method O2 Flow Rate 05/05/24 07:00 76 24 102/57 97 Nasal Cannula 3 05/05/24 00:50 80 96 05/05/24 00:50 Nasal Cannula 3 05/05/24 06:00 76 29 H 164/69 94 L Nasal Cannula 3 05/05/24 05:00 74 28 H 144/92 95 Nasal Cannula 3 05/05/24 04:00 98.3 F 71 32 H 155/69 94 L Nasal Cannula 3 05/05/24 03:00 75 32 H 150/66 96 Nasal Cannula 3 05/05/24 02:00 76 27 H 145/66 93 L Nasal Cannula 3 05/05/24 01:00 74 33 H 162/70 95 Nasal Cannula 3 05/05/24 00:00 97.9 F 71 24 145/83 95 Nasal Cannula 3 05/04/24 23:00 71 30 H 149/65 94 L Nasal Cannula 3 05/04/24 22:00 75 34 H 138/61 92 L Nasal Cannula 3 05/04/24 21:00 68 31 H 163/67 92 L Nasal Cannula 3 05/04/24 20:00 97.6 F 73 25 H 158/71 96 Nasal Cannula 3 05/04/24 19:00 Nasal Cannula 3 05/04/24 19:00 79 25 H 138/60 94 L Nasal Cannula 3 05/04/24 18:00 64 27 H 115/56 95 Nasal Cannula 3 05/04/24 17:00 70 25 H 119/56 99 Nasal Cannula 3 05/04/24 16:00 97.8 F 88 24 123/80 94 L Nasal Cannula 3 05/04/24 15:00 72 27 H 138/88 95 Nasal Cannula 3 05/04/24 14:00 71 24 137/60 97 Nasal Cannula 3 05/04/24 13:26 68 97 05/04/24 13:00 68 26 H 151/70 97 Nasal Cannula 3 05/04/24 12:00 97.7 F 70 22 133/61 97 Nasal Cannula 3 05/04/24 10:00 72 23 128/97 95 Nasal Cannula 3 05/04/24 09:00 90 25 H 173/84 97 Nasal Cannula 3 05/04/24 11:00 68 24 113/59 100 Nasal Cannula 3 05/04/24 07:00 Nasal Cannula 3 05/04/24 08:34 Nasal Cannula 3 05/04/24 08:00 97.3 F L 95 H 18 165/77 96 Nasal Cannula 3 05/04/24 07:00 87 26 H 170/71 95 Nasal Cannula 3 05/04/24 06:15 85 94 L 05/04/24 05:30 185/84 05/04/24 06:00 80 25 H 135/65 93 L Nasal Cannula 3 05/04/24 05:00 92 H 22 185/84 93 L Nasal Cannula 3 05/04/24 02:44 43 H 05/04/24 04:00 98.5 F 102 H 23 168/86 92 L Nasal Cannula 3 05/04/24 03:00 100 H 23 186/84 93 L Nasal Cannula 3 05/04/24 02:18 Nasal Cannula 3 05/04/24 02:14 33 H 05/04/24 02:00 102 H 31 H 169/93 92 L Nasal Cannula 3 05/04/24 01:00 107 H 33 H 174/74 93 L Nasal Cannula 3 05/04/24 00:05 105 H 95 05/04/24 00:00 98.2 F 105 H 33 H 183/77 96 Nasal Cannula 3 05/03/24 23:00 100 H 43 H 169/74 92 L Nasal Cannula 3 05/03/24 22:00 108 H 44 H 165/88 92 L Nasal Cannula 3 05/03/24 21:00 112 H 40 H 151/63 90 L Nasal Cannula 3 05/03/24 20:00 102 H 36 H 172/74 90 L Nasal Cannula 3 05/03/24 19:00 98.6 F 90 31 H 168/94 91 L Nasal Cannula 3 05/03/24 19:00 Nasal Cannula 3 05/03/24 19:12 18 05/03/24 20:19 Nasal Cannula 3 05/03/24 18:13 91 H 41 H 90 L 05/03/24 18:13 157/70 05/03/24 18:00 157/105 05/03/24 18:00 165 H 39 H 87 L 05/03/24 17:32 91 H 33 H 90 L 05/03/24 17:32 164/69 05/03/24 17:32 164/69 05/03/24 18:42 20 05/03/24 17:00 96 H 41 H 91 L 05/03/24 17:00 166/101 05/03/24 17:08 94 H 92 L 05/03/24 16:00 96 H 28 H 90 L 05/03/24 16:00 164/72 05/03/24 15:00 143/95 05/03/24 15:00 86 30 H 84 L 05/03/24 14:01 98.3 F 187/72 05/03/24 14:01 99 H 29 H 92 L 05/03/24 14:00 97 H 29 H 91 L 05/03/24 07:00 Nasal Cannula 3 05/03/24 13:29 21 05/03/24 13:00 92 H 28 H 97 05/03/24 13:00 180/76 05/03/24 13:00 180/76 05/03/24 13:00 180/76 05/03/24 12:00 162/74 05/03/24 12:00 98.0 F 125 H 33 H 89 L 05/03/24 11:00 176/74 05/03/24 11:00 176/74 05/03/24 12:59 26 H 05/03/24 10:00 Nasal Cannula 3 05/03/24 12:55 97 H 95 05/03/24 11:00 176/74 05/03/24 11:00 91 H 32 H 91 L 05/03/24 10:00 83 36 H 91 L 05/03/24 10:00 167/93 05/03/24 10:00 167/93 05/03/24 10:00 83 36 H 91 L 05/03/24 09:11 175/75 05/03/24 09:11 95 H 29 H 94 L 05/03/24 09:01 187/84 05/03/24 09:01 187/84 05/03/24 09:00 99 H 31 H 93 L 05/03/24 09:03 187/84 05/03/24 08:00 173/78 05/03/24 08:00 97.9 F 96 H 31 H 94 L 05/03/24 07:00 98 H 36 H 93 L 05/03/24 07:00 142/68 05/03/24 06:22 Nasal Cannula 3 05/03/24 06:18 109 H 94 L 05/03/24 06:00 109 H 32 H 163/70 94 L Nasal Cannula 3 05/03/24 05:00 101 H 31 H 178/76 94 L Nasal Cannula 3 05/03/24 04:30 103 H 29 H 166/81 94 L Nasal Cannula 3 05/03/24 04:00 98.4 F 101 H 32 H 187/82 91 L Nasal Cannula 3 05/03/24 03:30 111 H 29 H 141/65 94 L Nasal Cannula 3 05/03/24 03:15 97 H 30 H 151/64 95 Nasal Cannula 3 05/03/24 03:00 96 H 29 H 152/81 92 L Nasal Cannula 3 05/03/24 02:00 89 29 H 152/70 92 L Nasal Cannula 3 05/03/24 01:00 94 H 28 H 178/72 97 Nasal Cannula 3 05/03/24 00:00 98.5 F 93 H 31 H 135/78 94 L Nasal Cannula 3 05/02/24 23:00 90 27 H 172/77 93 L Nasal Cannula 3 05/02/24 22:00 91 H 30 H 154/67 94 L Nasal Cannula 3 05/02/24 21:00 95 H 34 H 150/67 94 L Nasal Cannula 3 05/02/24 20:00 88 28 H 136/60 93 L Nasal Cannula 3 05/02/24 19:00 98.2 F 90 40 H 154/70 94 L Nasal Cannula 3 05/02/24 19:00 Nasal Cannula 3 05/02/24 18:01 86 23 98 05/02/24 18:01 177/77 05/02/24 18:00 86 22 96 05/02/24 17:31 80 94 L 05/02/24 17:00 77 25 H 95 05/02/24 17:00 143/67 05/02/24 16:45 74 25 H 96 05/02/24 16:45 137/62 05/02/24 16:41 81 27 H 95 05/02/24 16:08 194/79 05/02/24 16:08 94 H 24 94 L 05/02/24 16:01 98 H 27 H 95 05/02/24 16:00 95 H 28 H 93 L 05/02/24 16:10 194/79 10/12/24 15:00 185/79 05/02/24 15:00 98.6 F 96 H 34 H 90 L 05/02/24 14:00 98 H 31 H 95 05/02/24 14:00 162/79 05/02/24 13:00 164/69 05/02/24 13:00 93 H 24 97 05/02/24 12:59 169/69 05/02/24 12:59 102 H 28 H 97 05/02/24 12:14 195/85 05/02/24 12:14 83 22 96 05/02/24 12:10 94 H 19 98 05/02/24 12:10 201/73 05/02/24 12:08 187/77 05/02/24 12:08 131 H 20 96 05/02/24 12:00 98.7 F 83 25 H 98 05/02/24 11:31 194/81 05/02/24 11:31 89 22 95 05/02/24 11:01 161/66 05/02/24 11:01 161/66 05/02/24 11:01 84 25 H 97 05/02/24 11:00 90 26 H 98 05/02/24 10:30 178/71 05/02/24 10:30 89 26 H 97 05/02/24 10:00 115 H 28 H 98 05/02/24 10:00 177/80 05/02/24 10:00 177/80 05/02/24 09:30 88 26 H 99 05/02/24 09:30 179/79 05/02/24 09:00 85 25 H 99 05/02/24 09:00 174/73 05/02/24 08:30 91 H 25 H 96 05/02/24 08:30 163/71 05/02/24 08:00 98.9 F 97 H 25 H 96 05/02/24 08:00 152/74 05/02/24 08:00 152/74 05/02/24 08:00 97 H 25 H 96 05/02/24 13:27 89 96 FiO2 05/05/24 07:00 05/05/24 00:50 05/05/24 00:50 32 05/05/24 06:00 05/05/24 05:00 05/05/24 04:00 05/05/24 03:00 05/05/24 02:00 05/05/24 01:00 05/05/24 00:00 05/04/24 23:00 05/04/24 22:00 05/04/24 21:00 05/04/24 20:00 05/04/24 19:00 05/04/24 19:00 05/04/24 18:00 05/04/24 17:00 05/04/24 16:00 05/04/24 15:00 05/04/24 14:00 05/04/24 13:26 05/04/24 13:00 05/04/24 12:00 05/04/24 10:00 05/04/24 09:00 05/04/24 11:00 05/04/24 07:00 05/04/24 08:34 32 05/04/24 08:00 05/04/24 07:00 05/04/24 06:15 05/04/24 05:30 05/04/24 06:00 05/04/24 05:00 05/04/24 02:44 05/04/24 04:00 05/04/24 03:00 05/04/24 02:18 32 05/04/24 02:14 05/04/24 02:00 05/04/24 01:00 05/04/24 00:05 05/04/24 00:00 05/03/24 23:00 05/03/24 22:00 05/03/24 21:00 05/03/24 20:00 05/03/24 19:00 05/03/24 19:00 05/03/24 19:12 05/03/24 20:19 32 05/03/24 18:13 05/03/24 18:13 05/03/24 18:00 05/03/24 18:00 05/03/24 17:32 05/03/24 17:32 05/03/24 17:32 05/03/24 18:42 05/03/24 17:00 05/03/24 17:00 05/03/24 17:08 05/03/24 16:00 05/03/24 16:00 05/03/24 15:00 05/03/24 15:00 05/03/24 14:01 05/03/24 14:01 05/03/24 14:00 05/03/24 07:00 05/03/24 13:29 05/03/24 13:00 05/03/24 13:00 05/03/24 13:00 05/03/24 13:00 05/03/24 12:00 05/03/24 12:00 05/03/24 11:00 05/03/24 11:00 05/03/24 12:59 05/03/24 10:00 32 05/03/24 12:55 05/03/24 11:00 05/03/24 11:00 05/03/24 10:00 05/03/24 10:00 05/03/24 10:00 05/03/24 10:00 05/03/24 09:11 05/03/24 09:11 05/03/24 09:01 05/03/24 09:01 05/03/24 09:00 05/03/24 09:03 05/03/24 08:00 05/03/24 08:00 05/03/24 07:00 05/03/24 07:00 05/03/24 06:22 32 05/03/24 06:18 05/03/24 06:00 05/03/24 05:00 05/03/24 04:30 05/03/24 04:00 05/03/24 03:30 05/03/24 03:15 05/03/24 03:00 05/03/24 02:00 05/03/24 01:00 05/03/24 00:00 05/02/24 23:00 05/02/24 22:00 05/02/24 21:00 05/02/24 20:00 05/02/24 19:00 05/02/24 19:00 05/02/24 18:01 05/02/24 18:01 05/02/24 18:00 05/02/24 17:31 05/02/24 17:00 05/02/24 17:00 05/02/24 16:45 05/02/24 16:45 05/02/24 16:41 05/02/24 16:08 05/02/24 16:08 05/02/24 16:01 05/02/24 16:00 05/02/24 16:10 05/02/24 15:00 05/02/24 15:00 05/02/24 14:00 05/02/24 14:00 05/02/24 13:00 05/02/24 13:00 05/02/24 12:59 05/02/24 12:59 05/02/24 12:14 05/02/24 12:14 05/02/24 12:10 05/02/24 12:10 05/02/24 12:08 05/02/24 12:08 05/02/24 12:00 05/02/24 11:31 05/02/24 11:31 05/02/24 11:01 05/02/24 11:01 05/02/24 11:01 05/02/24 11:00 05/02/24 10:30 05/02/24 10:30 05/02/24 10:00 05/02/24 10:00 05/02/24 10:00 05/02/24 09:30 05/02/24 09:30 05/02/24 09:00 05/02/24 09:00 05/02/24 08:30 05/02/24 08:30 05/02/24 08:00 05/02/24 08:00 05/02/24 08:00 05/02/24 08:00 05/02/24 13:27 Procedures (ALL) - Central Line Placement PCM.CLCO: written consent Time out performed: Yes Patient placed pm monitor/pulse ox: Yes MD prep: mask, gown, gloves, other Centrial line prep: chlorhexidine scrub Local anesthsia used: lidocane 1% Ultrasound used for placement: Yes (right basilic id'd and cannulation vis) Central line lumen ininserted: double (5.5fr arrow picc. trimmed to 38cm, 0cm exposed) Post procedure: good blood return, all ports aspirated, flushed,capped, sterile dressing applied Post procedure xray: tip oc catheter in good position (appears svc, rad report pending) Patient tolerated procedure: Yes Complications: none
--- NOTE | 2024-05-05 08:35 | NOTE.SOAP ---
Soap Note Note for Day of Date of Exam: 05/05/24 Subjective Data Subjective Data: Patient seen with nurses at bedside. Midline placed in right arm earlier today. Sodium down, creatinine up, hemoglobin down. More awake and alert but still not answering all questions appropriately. No overnight events. Objective Data Objective Data: Elderly female in no acute distress. She is more alert and oriented today but still not fully answering questions appropriately. She is aware of the year, but she is in a hospital, and her name. Not able to give month, city, or day of the week. She is answering questions more quickly than yesterday. Heart irregularly irregular. Lungs clear. Speech is clear. Belly is soft and nontender with bowel sounds present. Assessment Assessment: 1. Severe sepsis due to E. coli UTI and bacteremia. Will need to complete 14 days of IV antibiotics. Continue Rocephin for now. 2. MICHELLE, worsening. Increase IV fluids. Encourage p.o. intake. 3. Acute hyponatremia. Replete with IV fluids. 4. Delirium, medication induced. The IV fluids and time should help. She is improving.
[2024-05-06] MEDS: TYLENOL 325 MG TAB PO PRN (03:44)
[2024-05-06 04:39] LABS: BASOPHILS % (AUTO) 0.6 % (0.2-1.0); EOSINOPHILS % (AUTO) 0.3 % (0.9-2.9); HEMATOCRIT 22.8 % (36.0-47.0); HEMOGLOBIN 7.7 g/dL (12.0-16.0); LYMPHOCYTES # (AUTO) 1.7 X10^3/uL (1.3-2.9); LYMPHOCYTES % (AUTO) 26.3 % (21.0-51.0); MEAN CORPUSCULAR HEMOGLOBIN 29.3 pg (27.0-34.0); MEAN CORPUSCULAR VOLUME 86.2 fL (80.0-100.0); MONOCYTES # (AUTO) 0.6 x10^3/uL (0.3-0.8); MONOCYTES % (AUTO) 8.7 % (0.0-13.0); NEUTROPHILS # (AUTO) 4.1 x10^3/uL (2.2-4.8); NEUTROPHILS % (AUTO) 64.1 % (42.0-75.0); PLATELET COUNT 213 X10^3/uL (150.0-450.0); RED BLOOD COUNT 2.64 X10^6/uL (3.5-5.4); RED CELL DISTRIBUTION WIDTH 20.5 % (11.6-16.5); WHITE BLOOD COUNT 6.3 X10^3/uL (3.6-10.0)
[2024-05-06 04:52] LABS: ALANINE AMINOTRANSFERASE 12 Units/L (12-78); ALBUMIN 1.9 g/dL (3.4-5.0); ALKALINE PHOSPHATASE 128 Units/L (46-116); ASPARTATE AMINO TRANSFERASE 17 Units/L (15-37); BLOOD UREA NITROGEN 26 mg/dL (7-18); CARBON DIOXIDE 22.6 mmol/L (21-32); CHLORIDE 97 mmol/L (98-107); COR CA(FOR HYPOALB) 8.7 mg/dL (8.5-10.1); CREATININE 1.77 mg/dL (0.55-1.02); GLUCOSE 91 mg/dL (65-99); POTASSIUM 5.1 mmol/L (3.5-5.1); SODIUM 127 mmol/L (136-145); TOTAL PROTEIN 5.9 g/dL (6.4-8.2); eGFR NON BLACK RACES 30 (>60)
[2024-05-06 05:12] LABS: ANISOCYTOSIS 1+; OVALOCYTES SLIGHT; PLATELET MORPHOLOGY COMMENT NORMAL (NORMAL)
[2024-05-06] MEDS: NS 1,000 ML IV 1,000 ML IV SCH (08:34)
--- NOTE | 2024-05-06 09:00 | NOTE.SOAP ---
Soap Note Note for Day of Date of Exam: 05/06/24 Subjective Data Subjective Data: Patient seen with nurse for morning rounds. Vitals overall improved but a little hypertensive this morning. Mentation improving per staff but still drowsy. Appetite seems better. Sodium down to 127 from 128 yesterday. Creatinine up to 1.77. Fluids running at 75/h. Objective Data Objective Data: Elderly female in no acute distress. Somnolent but less than the last couple days. Answers questions more appropriately today. Heart regular rate and rhythm. Lungs clear with good air movement. Speech is clear. Belly soft, nontender, nondistended with bowel sounds present. Skin with improved turgor from yesterday. Assessment Assessment: 1. Severe sepsis from bacteremia and UTI with E. coli. Improving. 2. Atrial fibrillation with RVR. RVR is resolved and A-fib is chronic. 3. MICHELLE, worsening. Also with hyponatremia. Hypokalemia and hypomagnesemia resolved. 3. Delirium. Medication induced versus medication withdrawal. Increase fluids, more stimulation today, more out of bed time. Plan Plan: Continue IV Rocephin. Will need to complete 14 days of IV therapy. Continue Eliquis and Cardizem p.o. Will get a Hemoccult due to hemoglobin dropping another gram overnight. Increase fluids to 125 while also increasing p.o. intake.
--- NOTE | 2024-05-06 16:47 | RAD ---
EXAM: KUB HISTORY: SEPSIS, ABDOMINAL PAIN; COMPARISON: None. TECHNIQUE: Two views FINDINGS: Films are underpenetrated. The overall bowel gas pattern is normal. No free air, dilated loops or s ignificant air-fluid levels. Moderate stool in the left colon and splenic flexure. No abnormal calc ifications in the distribution of the kidneys or ureters. Vascular calcifications are noted. Degenerative changes in the thoracolumbar spine. Gamma nail in the left hip partially imaged. Heter otopic ossification. IMPRESSION: Constipation. No acute findings THIS IS AN ELECTRONICALLY VERIFIED FINAL REPORT 05/06/2024 4:44 PM - Electronically signed by Dante Encarnacion MD
[2024-05-06 16:54] LABS: BILIRUBIN,URINE NEGATIVE (NEGATIVE); BLOOD/HEMOGLOBIN,URINE 5+ (NEGATIVE); GLUCOSE, URINE NEGATIVE (NEGATIVE); KETONES,URINE 1+ (NEGATIVE); LEUKOCYTE ESTERASE ,URINE 3+ (NEGATIVE); NITRITES,URINE NEGATIVE (NEGATIVE); PROTEIN,URINE 2+ (NEGATIVE); UROBILINOGEN,URINE NORMAL (NORMAL)
[2024-05-06 16:59] LABS: APPEARANCE,URINE HAZY (CLEAR); COLOR,URINE YELLOW (YELLOW)
[2024-05-06 17:03] LABS: BACTERIA,URINE 2+ /HPF (NEGATIVE); SQUAMOUS EPITHELIAL CELL,UR MODERATE /HPF (NEGATIVE)
[2024-05-06] MEDS: PROTONIX INJ 40 MG VIAL IVP SCH (18:09)
[2024-05-07] MEDS: VALIUM INJ IVP PRN (04:11)
[2024-05-07 05:02] LABS: BASOPHILS % (AUTO) 0.5 % (0.2-1.0); EOSINOPHILS % (AUTO) 0.1 % (0.9-2.9); HEMATOCRIT 31.3 % (36.0-47.0); LYMPHOCYTES # (AUTO) 1.2 X10^3/uL (1.3-2.9); LYMPHOCYTES % (AUTO) 15.3 % (21.0-51.0); MEAN CORPUSCULAR HEMOGLOBIN 29.4 pg (27.0-34.0); MEAN CORPUSCULAR HGB CONC 33.4 g/dL (33.0-35.0); MEAN PLATELET VOLUME 9.2 fL (7.4-11.0); MONOCYTES # (AUTO) 0.6 x10^3/uL (0.3-0.8); NEUTROPHILS % (AUTO) 76.1 % (42.0-75.0); PLATELET COUNT 248 X10^3/uL (150.0-450.0); RED BLOOD COUNT 3.56 X10^6/uL (3.5-5.4); RED CELL DISTRIBUTION WIDTH 18.2 % (11.6-16.5); WHITE BLOOD COUNT 7.9 X10^3/uL (3.6-10.0)
[2024-05-07 05:06] LABS: ALANINE AMINOTRANSFERASE 15 Units/L (12-78); ALKALINE PHOSPHATASE 141 Units/L (46-116); ASPARTATE AMINO TRANSFERASE 19 Units/L (15-37); BLOOD UREA NITROGEN 31 mg/dL (7-18); CALCIUM 6.8 mg/dL (8.5-10.1); CARBON DIOXIDE 21.7 mmol/L (21-32); CHLORIDE 99 mmol/L (98-107); COR CA(FOR HYPOALB) 8.4 mg/dL (8.5-10.1); CREATININE 1.83 mg/dL (0.55-1.02); GLUCOSE 89 mg/dL (65-99); POTASSIUM 4.7 mmol/L (3.5-5.1); SODIUM 130 mmol/L (136-145); TOTAL PROTEIN 6.1 g/dL (6.4-8.2); eGFR NON BLACK RACES 29 (>60)
[2024-05-07 05:09] LABS: HEMOGLOBIN 10.4 g/dL (12.0-16.0)
[2024-05-07 06:28] LABS: ABG BASE EXCESS -7.4 mmol/L (-2.0-2.0)
[2024-05-07 06:29] LABS: ABG ALLEN TEST POS; ABG HCO3 17.1 mmol/L (22-26)
[2024-05-07] MEDS: NS 500 ML IV 500 ML IV ONE ×2 (07:41)
[2024-05-07] MEDS: NS 1,000 ML IV 1,000 ML IV SCH ×2 (09:49→19:30)
[2024-05-07 13:35] LABS: BASOPHILS # (AUTO) 0.1 X10^3/uL (0.0-0.1); BASOPHILS % (AUTO) 0.8 % (0.2-1.0); EOSINOPHILS % (AUTO) 0.2 % (0.9-2.9); HEMATOCRIT 31.5 % (36.0-47.0); HEMOGLOBIN 10.5 g/dL (12.0-16.0); LYMPHOCYTES # (AUTO) 1.1 X10^3/uL (1.3-2.9); LYMPHOCYTES % (AUTO) 11.6 % (21.0-51.0); MEAN CORPUSCULAR HEMOGLOBIN 29.4 pg (27.0-34.0); MEAN CORPUSCULAR HGB CONC 33.4 g/dL (33.0-35.0); MEAN PLATELET VOLUME 9.1 fL (7.4-11.0); MONOCYTES # (AUTO) 0.7 x10^3/uL (0.3-0.8); MONOCYTES % (AUTO) 7.7 % (0.0-13.0); NEUTROPHILS # (AUTO) 7.5 x10^3/uL (2.2-4.8); NEUTROPHILS % (AUTO) 79.7 % (42.0-75.0); PLATELET COUNT 282 X10^3/uL (150.0-450.0); RED BLOOD COUNT 3.58 X10^6/uL (3.5-5.4); RED CELL DISTRIBUTION WIDTH 18.7 % (11.6-16.5); WHITE BLOOD COUNT 9.5 X10^3/uL (3.6-10.0)
[2024-05-07 13:53] LABS: CREATININE 1.65 mg/dL (0.55-1.02); POTASSIUM 4.2 mmol/L (3.5-5.1)
--- NOTE | 2024-05-07 17:11 | NOTE.SOAP ---
Soap Note Note for Day of Date of Exam: 05/07/24 Subjective Data Subjective Data: Patient seen for a.m. rounds with nurse and daughter at bedside. Kidney function worsening today. Blood pressure was good through most of the day but then elevated this morning. Heart rate still rate controlled. Now on humidified HFNC. PaO2 did improve slightly to 65. Mentation better when awake per nursing family but still very somnolent. Did get Valium overnight for agit ation. Hemoglobin responded to the 2 units of PRBCs to greater than 10 from 7.7. ABG consistent with metabolic acidosis with compensatory respiratory and metabolic alkaloses. Objective Data Objective Data: Elderly female in no acute distress. Hearing intact conversation. Drowsy but easily awakened. Lungs are clear. Heart irregularly irregular. Belly is soft and nontender with bowel sounds present. Assessment Assessment: 1. Severe sepsis due to E. coli bacteremia and UTI. Continue Rocephin. That appears resolved. She has had no fever and normal white cells for greater than 3 days now. 2. Anemia due to GI bleed. Suspect upper. She is responded well to the 2 units of PRBCs. Do not want to do a procedure at this time due to concern about anesthesia and affecting her mental status. I do think it is coming from her Eliquis and Plavix. Cannot stop either them due to her vasculopathies and A- fib. Can stop her aspirin. Stressed to daughter that she does need to see GI or general surgery as an outpatient. IV Protonix started. 3. Acute on chronic hypoxemic respiratory failure. Stable. I suspect she is really at her baseline. I think she is tachypneic as she is compensating for metabolic acidosis. Will continue high flow nasal cannula for now. Will try to stimulate her more. Consider CPAP or BiPAP. 4. Somnolence. May be related to the Valium today. I suspect she is not clearing renally. Hold sedating medications. Did restart her venlafaxine just in case she is having withdrawals from it. 5. MICHELLE. Was resolved but now worsening. SCR up to 1.83. Will increase fluids and recheck a BMP. (BMP was rechecked after lunch, did show improvement in SCR to 1.65. Will continue fluids at 100 cc/h for now. Watch for fluid overload and third spacing.)
[2024-05-08 04:50] LABS: BASOPHILS # (AUTO) 0.1 X10^3/uL (0.0-0.1); BASOPHILS % (AUTO) 0.6 % (0.2-1.0); EOSINOPHILS % (AUTO) 0.2 % (0.9-2.9); HEMATOCRIT 32.9 % (36.0-47.0); LYMPHOCYTES # (AUTO) 1.2 X10^3/uL (1.3-2.9); LYMPHOCYTES % (AUTO) 12.2 % (21.0-51.0); MEAN CORPUSCULAR HEMOGLOBIN 29.2 pg (27.0-34.0); MEAN CORPUSCULAR HGB CONC 33.3 g/dL (33.0-35.0); MEAN CORPUSCULAR VOLUME 87.6 fL (80.0-100.0); MONOCYTES # (AUTO) 0.7 x10^3/uL (0.3-0.8); MONOCYTES % (AUTO) 7.4 % (0.0-13.0); NEUTROPHILS % (AUTO) 79.6 % (42.0-75.0); PLATELET COUNT 311 X10^3/uL (150.0-450.0); RED BLOOD COUNT 3.76 X10^6/uL (3.5-5.4); RED CELL DISTRIBUTION WIDTH 18.8 % (11.6-16.5)
[2024-05-08 05:08] LABS: ALBUMIN 2.1 g/dL (3.4-5.0); CALCIUM 6.9 mg/dL (8.5-10.1); COR CA(FOR HYPOALB) 8.4 mg/dL (8.5-10.1); CREATININE 1.28 mg/dL (0.55-1.02); TOTAL PROTEIN 6.4 g/dL (6.4-8.2)
[2024-05-08 08:20] LABS: CREATINE KINASE 83 Units/L (26-192); LACTATE DEHYDROGENASE 393 Units/L (81-234)
[2024-05-08] MEDS: DECADRON INJ IVP ONE (08:59)
[2024-05-08] MEDS: DUONEB 0.5 MG/3 MG (3 mL) NEB SCH (09:03)
[2024-05-08 09:54] VITALS: TEMP 97.6
--- NOTE | 2024-05-08 15:06 | RAD ---
EXAMINATION: CHEST, 1 VIEW HISTORY: SOB; . COMPARISON STUDY: 05/05/2024 TECHNIQUE: One view FINDINGS: Right-sided PICC line and loop recorder is unchanged. Cardiomegaly is noted. There is CHF. Small r ight effusion. No pneumothorax. There is a skin fold projecting over the right chest. Hilar and me diastinal structures and bony structures are unchanged. Surgical clips in the right neck. IMPRESSION: CHF with small right effusion. Follow-up recommended. THIS IS AN ELECTRONICALLY VERIFIED FINAL REPORT 05/08/2024 3:03 PM - Electronically signed by Dante Encarnacion MD
[2024-05-08] MEDS ORDERED: LASIX ONE (16:28)
[2024-05-08] MEDS: LASIX IVP ONE (16:41)
[2024-05-08 19:23] VITALS: BP 171/74; PULSE 74; RESP 29; O2SAT 100
--- NOTE | 2024-05-11 08:42 | PCM.DCPLAN ---
DISCHARGE SUMMARY Admission Date Date of Admission: 05/01/24 Discharge Date Discharge Date: 05/08/24 Admission Diagnoses (1) Severe sepsis: Status: Resolved (2) Urinary tract infection: Status: Acute (3) Atrial fibrillation with rapid ventricular response: Status: Resolved (4) Acute kidney injury: Status: Acute (5) Hypomagnesemia: Status: Resolved (6) Hyponatremia: Status: Acute (7) Hypokalemia: Status: Resolved (8) E coli bacteremia: Status: Acute (9) E. coli UTI: Status: Acute (10) Chronic hypoxemic respiratory failure: Status: Chronic (11) COPD exacerbation: Status: Acute Discharge Medications Discharge Medications: Home Medication List albuterol sulfate 2.5 mg/3 mL (0.083 %) solution for nebulization 2.5 mg inhalation Q6HR 05/01/24 [History] amlodipine 5 mg tablet 5 mg PO QDAY 05/01/24 [History] aspirin 81 mg capsule 81 mg PO QDAY 05/01/24 [History] clopidogrel 75 mg tablet 75 mg PO QDAY 05/01/24 [History] denosumab 60 mg/mL subcutaneous syringe (Prolia) 60 mg subcut [id number] osteoporosis 05/01/24 [History] diltiazem HCl 120 mg capsule,extended release 24 hr 120 mg PO QDAY 05/01/24 [History] ezetimibe 10 mg tablet 10 mg PO QDAY 05/01/24 [History] folic acid 1 mg tablet 1 mg PO QDAY 05/01/24 [History] linaclotide 290 mcg capsule (Linzess) 290 mcg PO QAM 05/01/24 [History] nitroglycerin 0.4 mg sublingual tablet 0.4 mg sublingual Q5-15M PRN 05/01/24 [History] oxycodone 5 mg tablet 5 mg PO QID pain 05/01/24 [History] venlafaxine 75 mg capsule,extended release 24 hr 225 mg PO QDAY 05/01/24 [History] carbamazepine 200 mg tablet 200 mg PO BID 05/02/24 [History] dexlansoprazole 30 mg capsule,biphase delayed release 30 mg PO DAILY 05/02/24 [History] furosemide 40 mg tablet (Lasix) 40 mg PO DAILY 05/02/24 [History] hydrocodone 7.5 mg-acetaminophen 325 mg tablet 1 tab PO BID 05/02/24 [History] pantoprazole 40 mg tablet,delayed release 40 mg PO BID 05/02/24 [History] rosuvastatin 40 mg tablet 40 mg PO HS 05/02/24 [History] sucralfate 100 mg/mL oral suspension 10 ml PO QID 05/02/24 [History] tizanidine 4 mg tablet 4 mg PO QPM muscle spasm 05/02/24 [History] trazodone 150 mg tablet 150 mg PO HS 05/02/24 [History] Prescriptions: Hospital Course Latest Lab Results: Laboratory Last Values WBC 10.0 X10^3/uL (3.6-10.0) 05/08/24 04:13 RBC 3.76 X10^6/uL (3.5-5.4) 05/08/24 04:13 Hgb 11.0 g/dL (12.0-16.0) L 05/08/24 04:13 Hct 32.9 % (36.0-47.0) L 05/08/24 04:13 MCV 87.6 fL (80.0-100.0) 05/08/24 04:13 MCH 29.2 pg (27.0-34.0) 05/08/24 04:13 MCHC 33.3 g/dL (33.0-35.0) 05/08/24 04:13 RDW 18.8 % (11.6-16.5) H 05/08/24 04:13 Plt Count 311 X10^3/uL (150.0-450.0) 05/08/24 04:13 Plt Count Comment Adequate (ADEQUATE) 05/06/24 04:04 MPV 9.0 fL (7.4-11.0) 05/08/24 04:13 Neut % (Auto) 79.6 % (42.0-75.0) H 05/08/24 04:13 Lymph % (Auto) 12.2 % (21.0-51.0) L 05/08/24 04:13 [place] % (Auto) 7.4 % (0.0-13.0) 05/08/24 04:13 Eos % (Auto) 0.2 % (0.9-2.9) L 05/08/24 04:13 Baso % (Auto) 0.6 % (0.2-1.0) 05/08/24 04:13 Neut # (Auto) 8.0 x10^3/uL (2.2-4.8) H 05/08/24 04:13 Lymph # (Auto) 1.2 X10^3/uL (1.3-2.9) L 05/08/24 04:13 [place] # (Auto) 0.7 x10^3/uL (0.3-0.8) 05/08/24 04:13 Eos # (Auto) 0.0 x10^3/uL (0.0-0.2) 05/08/24 04:13 Baso # (Auto) 0.1 X10^3/uL (0.0-0.1) 05/08/24 04:13 Absolute Nucleated RBC 0.3 /100WBC 05/08/24 04:13 Total Counted 100 05/02/24 04:03 Neutrophils % (Manual) 84 % (39-76) H 05/02/24 04:03 Band Neutrophils % 2 % (0-10) 05/01/24 09:10 Lymphocytes % (Manual) 10 % (13-43) L 05/02/24 04:03 Monocytes % (Manual) 6 % (4-9) 05/02/24 04:03 Giant Platelets Rare 05/01/24 09:10 Plt Morphology Comment Normal (NORMAL) 05/06/24 04:04 RBC Morphology Abnormal (NORMAL) A 05/06/24 04:04 Anisocytosis 1+ A 05/06/24 04:04 Ovalocytes Slight A 05/06/24 04:04 Og Cells Present 05/02/24 04:03 PT 17.0 SECONDS (11.8-14.3) 05/01/24 09:10 INR Target Range - 05/01/24 09:10 INR 1.43 (0.8-1.3) H 05/01/24 09:10 APTT 30.0 SECONDS (22.9-36.5) 05/01/24 09:10 PTT Comment - 05/01/24 09:10 Sample Site Lr 05/07/24 06:23 ABG pH 7.350 (7.35-7.45) 05/07/24 06:23 ABG pCO2 31.0 mmHg (35.0-45.0) L 05/07/24 06:23 ABG pO2 65.0 mmHg (80.0-100.0) L 05/07/24 06:23 ABG HCO3 17.1 mmol/L (22-26) L* 05/07/24 06:23 ABG O2 Saturation 91.0 % (90-100) 05/07/24 06:23 ABG Base Excess -7.4 mmol/L (-2.0-2.0) L 05/07/24 06:23 Sunny Test Pos 05/07/24 06:23 A-a Gradient 217.0 mmHg 05/07/24 06:23 FiO2 45.0 05/07/24 06:23 Blood Gas Comments Brayan well ae 05/07/24 06:23 Sodium 134 mmol/L (136-145) L 05/08/24 04:13 Corrected Sodium 134 mmol/L (136-145) L 05/08/24 04:13 Potassium 4.0 mmol/L (3.5-5.1) 05/08/24 04:13 Chloride 103 mmol/L (98-107) 05/08/24 04:13 Carbon Dioxide 23.0 mmol/L (21-32) 05/08/24 04:13 BUN 22 mg/dL (7-18) H 05/08/24 04:13 Creatinine 1.28 mg/dL (0.55-1.02) H 05/08/24 04:13 Est GFR (MDRD) Af Amer 53 (>60) L 05/08/24 04:13 Est GFR (MDRD) Non-Af 43 (>60) L 05/08/24 04:13 Glucose 116 mg/dL (65-99) H 05/08/24 04:13 POC Glucose (mg/dL) 107 mg/dL (65-99) H 05/06/24 20:47 Lactic Acid 1.2 mmol/L (0.4-2.0) 05/08/24 11:38 Calcium 6.9 mg/dL (8.5-10.1) L 05/08/24 04:13 Corrected Calcium 8.4 mg/dL (8.5-10.1) L 05/08/24 04:13 Magnesium 2.4 mg/dL (2.0-2.9) 05/04/24 05:33 Total Bilirubin 0.50 mg/dL (0.2-1.0) 05/08/24 04:13 AST 16 Units/L (15-37) 05/08/24 04:13 ALT 14 Units/L (12-78) 05/08/24 04:13 Alkaline Phosphatase 137 Units/L (46-116) H 05/08/24 04:13 Ammonia 12 umol/L (11-32) 05/07/24 13:23 Lactate Dehydrogenase 393 Units/L (81-234) H 05/08/24 04:13 Creatine Kinase 83 Units/L (26-192) 05/08/24 04:13 Troponin I High Sens 40.0 ng/L (4.0-60.0) 05/01/24 09:10 B-Natriuretic Peptide 713 pg/mL (0-79) H 05/07/24 13:10 Total Protein 6.4 g/dL (6.4-8.2) 05/08/24 04:13 Albumin 2.1 g/dL (3.4-5.0) L 05/08/24 04:13 Globulin 4.3 g/dL (2.5-4.5) 05/08/24 04:13 Albumin/Globulin Ratio 0.5 Ratio (1.1-2.1) L 05/08/24 04:13 Triglycerides 107 mg/dL (0-150) 05/02/24 04:03 Cholesterol 72 mg/dL (0-200) 05/02/24 04:03 LDL Cholesterol, Calc 39 mg/dL (0-100) 05/02/24 04:03 HDL Cholesterol 12 mg/dL (40-60) L 05/02/24 04:03 Cholesterol/HDL Ratio 6.0 (0.0-5.0) H 05/02/24 04:03 Amylase 50 Units/L (25-115) 05/01/24 09:10 Lipase 60 Units/L (16-77) 05/01/24 09:10 Specimen Type Catherized urine 05/06/24 16:30 Urine Color Yellow (YELLOW) 05/06/24 16:30 Urine Appearance Hazy (CLEAR) 05/06/24 16:30 Urine pH 5.0 (5.0 - 8.0) 05/06/24 16:30 Ur Specific [place] 1.020 (1.000-1.030) 05/06/24 16:30 Urine Protein 2+ (NEGATIVE) 05/06/24 16:30 Urine Glucose (UA) Negative (NEGATIVE) 05/06/24 16:30 Urine Ketones 1+ (NEGATIVE) 05/06/24 16:30 Urine Blood 5+ (NEGATIVE) 05/06/24 16:30 Urine Nitrite Negative (NEGATIVE) 05/06/24 16:30 Urine Bilirubin Negative (NEGATIVE) 05/06/24 16:30 Urine Urobilinogen Normal (NORMAL) 05/06/24 16:30 Ur Leukocyte Esterase 3+ (NEGATIVE) 05/06/24 16:30 Urine RBC 5-10 /HPF (0-3) A 05/06/24 16:30 Urine WBC 30-50 /HPF (0-5) A 05/06/24 16:30 Ur Squamous Epith Cells Moderate /HPF (NEGATIVE) 05/06/24 16:30 Amorphous Sediment 1+ /HPF (NEGATIVE) 05/01/24 09:22 Urine Bacteria 2+ /HPF (NEGATIVE) 05/06/24 16:30 Ur Culture Indicated? Yes/culture set up 05/06/24 16:30 Stl Occult Blood (IFOB) Positive (NEGATIVE) A 05/06/24 10:18 SARS-CoV-2 (PCR) Negative (NEGATIVE) 05/01/24 09:22 Influenza Type A (PCR) Negative (NEGATIVE) 05/01/24 09:22 Influenza Type B (PCR) Negative (NEGATIVE) 05/01/24 09:22 RSV (PCR) Negative (NEGATIVE) 05/01/24 09:22 Blood Type A POSITIVE 05/07/24 04:36 Antibody Screen Negative 05/06/24 17:38 Crossmatch See Detail 05/06/24 17:38 Tx React Prelim Eval See comment 05/07/24 04:36 Tx React Symptoms Drop in bp 05/07/24 04:36 Reaction Path Interpret See comment 05/07/24 04:36 Reaction Pathol Consult Nehemias stubbs md 05/07/24 04:36 Blood Bank Comment Performed by Kayleen 05/07/24 04:36 Hospital Course: Patient admitted to the ICU via the ER from home. Was found to have severe sepsis with MICHELLE and altered mental status secondary to E. coli bacteremia and UTI. She was placed on Rocephin. She did seem to respond to IV fluids and the antibiotics over the next 48 hours. Her breathing became more labored and the patient became more anxious during the third night of admission. Phenobarbital and benzo was used to help. After that point her MICHELLE worsened, mental status worsen, and breathing never fully recovered. Mental status did improve over the next 3 days. She had had a similar episode years ago after anesthesia. It was thought that the medications did not clear due to the renal function and bacteremia. Sedating medications were held at that time. Anxiety seem to worsen. Sepsis appeared resolved with normal white count, no fever, and A-fib with RVR resolved to a steady rate in the 60-75 range. Due to the prolonged admission and unable to wean her back to her baseline 2 L via nasal cannula, it was decided that she would be transferred to the ICU and [facility]. At initially attempted to transfer to [place] but that was declined due to her respiratory status. They were able to send her on a Venturi mask via ground ambulance to [place] on date of discharge. Condition was guarded but improving, likely a prolonged recovery course given her COPD. Neuro: Mental status at baseline. Increased anxiety. Respiratory: Tachypneic, with pursed lip breathing. Primary care provider advised that this was very common for her at baseline. Cardiac: Persistent A-fib the RVR was resolved. Back on p.o. medications to include Eliquis. GI: Suspected UGIB. Hemoccult was positive and patient was on multiple blood thinners. Aspirin was stopped. Plavix and Eliquis continued. Will need outpatient EGD and colonoscopy. Hematologic: She was transfused 2 units due to worsening anemia after restarting her anticoagulation. She responded well. Aspirin was stopped per above. Leukocytosis resolved. Infectious: E. coli grew on 1/2 blood cultures and her urine culture. Both cultures were pansensitive. She has been receiving Rocephin 1 g via IV since presenting to the ER. Would need to complete a 14 days course. PICC line was placed and [facility] ICU.
== END 2024-05-08 19:45 | disposition short-term general hospital (02) | DRG 872 ==
LOC: ER 08:59 → ICU 11:40
PROVIDERS: ADMIT Family Medicine; ATTEND Family Medicine
DX: B96.29 Other Escherichia coli [E. coli] as the cause of diseases classified elsewhere; Z79.01 Long term (current) use of anticoagulants; I48.91 Unspecified atrial fibrillation; J96.11 Chronic respiratory failure with hypoxia; R65.20 Severe sepsis without septic shock; R94.31 Abnormal electrocardiogram [ECG] [EKG]; N17.8 Other acute kidney failure; R26.89 Other abnormalities of gait and mobility; E83.42 Hypomagnesemia; R41.82 Altered mental status, unspecified; E86.0 Dehydration; E87.6 Hypokalemia; A41.51 Sepsis due to Escherichia coli [E. coli]; E87.1 Hypo-osmolality and hyponatremia; J44.1 Chronic obstructive pulmonary disease with (acute) exacerbation; S41.111A Laceration without foreign body of right upper arm, initial encounter; R79.1 Abnormal coagulation profile; X58.XXXA Exposure to other specified factors, initial encounter; S81.012A Laceration without foreign body, left knee, initial encounter; R41.841 Cognitive communication deficit; N30.01 Acute cystitis with hematuria; D64.89 Other specified anemias